=== PATIENT | female | born 1980 | race Caucasian/White ===

== ENCOUNTER → 2017-03-27 | Outpatient (CLI) | payer OTHER ==
[~2017-03-27] MED LIST: IBUPROFEN800 MG PO; MOTRIN800 MG PO; PRENATAL TABLE1 EAC3 PO
[2017-03-27 09:59] VITALS: BP 120/66
== END | disposition home or self-care (01) ==
LOC: IVINF 09:41
DX: Z34.83 Encounter for supervision of other normal pregnancy, third trimester (principal); Z3A.00 Weeks of gestation of pregnancy not specified
CPT/HCPCS: 96372

== ENCOUNTER 2017-06-13 08:11 | Inpatient (IN) | payer OTHER ==
[~2017-06-13] VITALS: Ht 170.2 cm; Wt 115.0 kg
[2017-06-13] VITALS (14 sets, daily range): BP systolic 114–134; BP diastolic 63–78
[2017-06-13 09:05] LABS: BASOPHIL (%) 0.4 % (0-1); EOSINOPHIL (%) 1.1 % (0-5); EOSINOPHIL COUNT 0.1 K/uL (0-0.3); HEMATOCRIT 32.2 % (36.0-46.0); HEMOGLOBIN 11.3 G/DL (11.9-15.5); LYMPHOCYTE (%) 19.4 % (15-42); LYMPHOCYTE COUNT 1.4 K/uL (1.0-2.8); MCHC 35.1 G/DL (30.0-36.0); MCV 91.2 FL (83-99); MONOCYTE (%) 8.5 % (3-12); MONOCYTE COUNT 0.6 K/uL (0-0.8); NEUTROPHIL (%) 69.6 % (45-76); PLATELET COUNT 174 K/uL (156-360); RBC DIS.WIDTH-CV 13.7 % (11.8-14.6); RBC DIS.WIDTH-SD 45.7 % (39-53); RED BLOOD COUNT 3.53 M/uL (3.80-5.20); WHITE BLOOD COUNT 7.2 K/uL (4.1-10.2)
[2017-06-14] VITALS (38 sets, daily range): BP systolic 94–138; BP diastolic 50–80
[2017-06-15] VITALS (20 sets, daily range): BP systolic 110–136; BP diastolic 55–80
[2017-06-16 06:53] LABS: BASOPHIL (%) 0.2 % (0-1); EOSINOPHIL (%) 0.1 % (0-5); HEMATOCRIT 26.5 % (36.0-46.0); IMMATURE GRANULOCYTE (%) 0.3 % (0.0-0.7); LYMPHOCYTE (%) 5.6 % (15-42); LYMPHOCYTE COUNT 0.7 K/uL (1.0-2.8); MCH 31.8 PG (29.0-34.0); MCHC 34.7 G/DL (30.0-36.0); MCV 91.7 FL (83-99); MONOCYTE (%) 6.6 % (3-12); MONOCYTE COUNT 0.8 K/uL (0-0.8); NEUTROPHIL (%) 87.2 % (45-76); NEUTROPHIL COUNT 10.6 K/uL (1.8-6.4); NRBC (%) 0.2 /100 WBC (0-0); PLATELET COUNT 143 K/uL (156-360); RBC DIS.WIDTH-CV 13.9 % (11.8-14.6); RBC DIS.WIDTH-SD 46.5 % (39-53); RED BLOOD COUNT 2.89 M/uL (3.80-5.20); WHITE BLOOD COUNT 12.2 K/uL (4.1-10.2)
[2017-06-16 06:56] LABS: HEMOGLOBIN 9.2 G/DL (11.9-15.5)
[2017-06-16 19:00] VITALS: BP 121/61
[2017-06-16 23:00] VITALS: BP 114/57
[2017-06-17 03:00] VITALS: BP 119/62
[2017-06-17] MEDS ORDERED: IBUPROFEN800 MG PO (08:38)
[2017-06-17] MEDS ORDERED: CHROMAGEN,1 CAPSULE PO (08:39)
[2017-06-17] MEDS ORDERED: ENDOCET 5-3251 EACH PO (08:39)
[2017-06-17] MEDS ORDERED: IBU800 MG PO (08:47)
== END 2017-06-17 13:10 | disposition home or self-care (01) | DRG 765 ==
LOC: LDRP-OP 08:11 → 2WEST 08:13 → LDRP-OP 10:40 → 2WEST 06-15 18:39 → LDRP-OP 08-20 12:45
PROVIDERS: Advanced Practice Midwife; Obstetrics & Gynecology Obstetrics
DX: O64.8XX0 Obstructed labor due to other malposition and malpresentation, not applicable or unspecified (principal); O64.5XX0 Obstructed labor due to compound presentation, not applicable or unspecified; O61.9 Failed induction of labor, unspecified; O62.0 Primary inadequate contractions; O99.02 Anemia complicating childbirth; D62 Acute posthemorrhagic anemia; Z3A.39 39 weeks gestation of pregnancy; Z37.0 Single live birth; O99.214 Obesity complicating childbirth; E66.01 Morbid (severe) obesity due to excess calories; Z68.39 Body mass index [BMI] 39.0-39.9, adult; Z87.891 Personal history of nicotine dependence; R51 Headache
CPT/HCPCS: 83030; 85025; 86850; 86870; 86900; 86901; C1726; C1755; G0378; J0595; J0690; J1100; J1170; J1885; J2250; J2274; J2405; J2790; J3010; J7120; Q0169